=== PATIENT | female | born 2000 | race Caucasian/White ===

== ENCOUNTER 2025-01-28 20:42 | Emergency (ER) | payer OTHER, SELFPAY ==
[2025-01-28 20:45] VITALS: BP 134/90
[2025-01-28 22:05] VITALS: BMI 25.9
[2025-01-28] MEDS: ADACEL 0.5 ML IM (22:47)
--- NOTE | 2025-01-28 22:53 | ED.GENMED ---
History of Present Illness
General
Chief Complaint: Rabies
Source: patient
Exam Limitations: none
Time Seen by Provider: 01/28/25 22:22
Nursing documentation reviewed up to this point in time: agreed with
History of Present Illness
History of Present Illness:
24-year-old female states she was outside and a bat came in contact with her left ht hand dorsum, left a linear scratch and she is not sure if it bit her or scratched her. This occurred within the past few hours. She is unsure of her last tetanus
immunization.
Past History
Past History
ED Past Medical History: None
Social History
Tobacco: Non-smoker
Alcohol: Occasional
Personal: Single
Employment: Employed
Review of Systems
Review of Systems
Allergies reviewed?: Yes
All Other Systems: ROS reviewed and negative except as documented in HPI and ROS
Phy Exam
Physical Exam
Physical Exam:
PHYSICAL EXAMINATION:
General: no apparent distress, not acutely ill
Neuro: alert and oriented.
Psychiatric: well kept. interactive and cooperative
Musculoskeletal: Moves with ease
Skin: Warm, pink. 3 cm scratch on the dorsum of her left hand. No visible puncture. No surrounding redness.
Course
Orders/Labs/Results
Orders:
Orders
01/28/25 22:31
Tetanus/Diphth/Acelpertussis [Adacel] 0.5 ml IM .ONCE ONE
01/28/25 22:41
Rabies Immune Globulin/Pf [HyperRAB] 1,588 unit IM NOW STA
01/28/25 22:45
Rabies Vaccine (Pcec)/Pf [Rabavert Rabies Vacc W-Diluent] 2.5 unit IM .ONCE ONE
Vital Signs
Initial and Last Documented VS:
Initial Vital Signs
Temp Pulse Resp BP Pulse Ox
98.4 F 77 18 134/90 99
01/28/25 20:45 01/28/25 20:45 01/28/25 20:45 01/28/25 20:45 01/28/25 20:45
Last Documented Vital Signs
Temp Pulse Resp BP Pulse Ox
98.4 F 77 18 134/90 99
01/28/25 20:45 01/28/25 20:45 01/28/25 20:45 01/28/25 20:45 01/28/25 22:53
MDM/Problems Addressed
MDM/Problems Addressed:
24-year-old female states she was outside and a bat came in contact with her left ht hand dorsum, left a linear scratch and she is not sure if it bit her or scratched her. This occurred within the past few hours. She is unsure of her last tetanus
immunization.
*Pulse Oximetry
SaO2: 99
Oxygen Mode of Delivery: Room air
Patient hypoxic: not evaluated
*Critical Care Note
Total Time (30-74mins, 75-104mins- exclusive of procedures): Not Applicable
ED Attending Note
-
Portions of this chart may have been created with voice recognition software.� Occasional wrong word or��sound alike� substitutions may have occurred due to the inherent limitations of voice recognition software.
Discharge Plan
Departure
Patient Disposition: Home (Routine Discharge)
Date of Disposition: 01/28/25
Time of Disposition: 23:00
Patient with high blood pressure during this ER visit?: No
Condition: Good
Discharge Problem:
Need for immunization against rabies
Instructions: Rabies
Prescriptions:
New
RabAvert (PF) 2.5 unit suspension for reconstitution
2.5 unit IM ONCE Qty: 4 0RF
Rx Instructions:
Give on the following dates: 01/31, 02/05 (pt not available for 02/04), 02/12
Referrals:
Jimena Pandey PA [Family Provider, Family Practice]
Stand Alone Forms: Rabies Vaccine Post Exp Dosing
Activity Restrictions/Additional Instructions:
As we discussed, call the outpatient infusion center at [phone] on Wednesday and make appointments for your next Vaccines.
Take the prescription with you
Interventions
Interventions:
*Risk Screen - Suicide Last Done: 01/28/25 20:45
*General Assessment Last Done: 01/28/25 20:45
*Neglect/Abuse Screening Last Done: 01/28/25 20:45
*ED- Fall Risk Assessment Last Done: 01/28/25 20:45
*ED COVID-19 Vaccine History Last Done: 01/28/25 20:45
Discharge Date and Time
Print Language: SENEGALESE
[2025-01-28] MEDS: RABAVERT RABIES VACC W-DILUENT 2.5 UNIT IM (23:40)
[2025-01-28 23:55] VITALS: BP 136/76
== END 2025-01-28 23:55 | disposition home or self-care (01) ==
LOC: EMR 20:42
PROVIDERS: EMERGENCY PHYSICIAN Emergency Medicine; FAMILY PHYSICIAN Physician Assistant Medical
DX: Z20.3 Contact with and (suspected) exposure to rabies (principal); Z23 Encounter for immunization
CPT/HCPCS: 99282; 90471; 96372; 90375; 90675; 90715

== ENCOUNTER 2025-02-12 09:23 | Outpatient (RCR) | payer OTHER, SELFPAY ==
[2025-01-31 14:45] VITALS: BP 165/91
[2025-01-31 14:48] VITALS: BP 140/87
[2025-01-31] MEDS: RABAVERT RABIES VACC W-DILUENT 2.5 UNIT IM (14:56)
[2025-02-05 15:20] VITALS: BP 131/78
[2025-02-05] MEDS: RABAVERT RABIES VACC W-DILUENT 2.5 UNIT IM (15:26)
[2025-02-12 09:30] VITALS: BP 141/79
[2025-02-12] MEDS: RABAVERT RABIES VACC W-DILUENT 2.5 UNIT IM (09:35)
== END 2025-02-13 09:07 | disposition home or self-care (01) ==
LOC: OID 09:23
PROVIDERS: ATTENDING PHYSICIAN Registered Nurse; FAMILY PHYSICIAN Physician Assistant Medical
DX: Z20.3 Contact with and (suspected) exposure to rabies (principal); Z23 Encounter for immunization
CPT/HCPCS: 90471; 90675